=== PATIENT | female | born 1980 | race Caucasian/White ===

== ENCOUNTER 2017-08-17 15:13 | Emergency (ER) | payer MEDICAID ==
[~2017-08-17] VITALS: Ht 152.4 cm; Wt 76.6 kg
[~2017-08-17 15:13] MED LIST: ALPR0.25 PO; DESV50TA PO; ESTR0.6246 PO; ESTR1TAB15 PO; OMEP20CA9 PO
[2017-08-17 16:11] LABS: BASOPHILS # (AUTO) 0.05 x10^3/uL (0-0.1); BASOPHILS % (AUTO) 1 % (0-1); EOSINOPHILS # (AUTO) 0.16 x10^3/uL (0-0.4); EOSINOPHILS % (AUTO) 2 % (1-7); LYMPHOCYTES # (AUTO) 3.24 x10^3/uL (1-3.4); LYMPHOCYTES % (AUTO) 34 % (22-44); MD NO; MEAN CORPUSCULAR HEMOGLOBIN 30.6 pg (27.0-34.8); MEAN CORPUSCULAR HGB CONC 33.9 g/dL (32.4-35.8); MEAN CORPUSCULAR VOLUME 90.4 fL (80-100); MEAN PLATELET VOLUME 8.1 fL (7.4-10.4); MONOCYTES # (AUTO) 0.56 x10^3/uL (0.2-0.8); MONOCYTES % (AUTO) 6 % (2-9); NEUTROPHILS # (AUTO) 5.66 x10^3/uL (1.8-6.8); NEUTROPHILS % (AUTO) 59 % (42-75); PLATELET COUNT 382 x10^3/uL (130-400); RED BLOOD COUNT 4.38 x10^6/uL (3.82-5.3); RED CELL DISTRIBUTION WIDTH 12.5 % (9.6-15.2)
[2017-08-17] MEDS ORDERED: ESCI20TA PO (16:19)
[2017-08-17 16:23] LABS: ALBUMIN 3.8 g/dL (3.4-5.0); ANION GAP 7 mmol/L (5-15); CALCIUM 8.6 mg/dL (8.5-10.1); CHLORIDE 109 mmol/L (98-107)
[2017-08-17] MEDS ORDERED: FAMOTIDINE 20 MG TABLET ONE (16:27)
[2017-08-17] MEDS ORDERED: MAALOX/HYOSCYAMINE/LIDOCAINE 45 ML BTL ONE (16:27)
[2017-08-17 16:28] LABS: ALANINE AMINOTRANSFERASE 39 U/L (12-78); ALKALINE PHOSPHATASE 94 U/L (45-117); BILIRUBIN,TOTAL 0.2 mg/dL (0.2-1.0); CREATININE 0.65 mg/dL (0.55-1.02); TOTAL PROTEIN 7.8 g/dL (6.4-8.2)
[2017-08-17] MEDS ORDERED: FAMOTIDINE 20 MG TABLET PO ONE (16:30)
[2017-08-17] MEDS ORDERED: MAALOX/HYOSCYAMINE/LIDOCAINE 45 ML BTL PO ONE (16:30)
[2017-08-17 16:32] LABS: CULTURE INDICATED? YES; MICROSCOPIC INDICATED
[2017-08-17 17:55] VITALS: BP 110/74
== END 2017-08-17 17:57 | disposition home or self-care (01) ==
LOC: ED 16:46
DX: K29.00 Acute gastritis without bleeding (principal); Z90.710 Acquired absence of both cervix and uterus; Z90.721 Acquired absence of ovaries, unilateral
CPT/HCPCS: 36415; 74021; 80053; 81001; 83690; 84703; 85025; 87086; 99285

== ENCOUNTER 2018-01-11 11:31 | Emergency (ER) | payer MEDICAID ==
[~2018-01-11 11:31] MED LIST changes: +ESCI20TA PO
[2018-01-11 11:57] VITALS: BP 121/76
== END 2018-01-11 13:25 | disposition home or self-care (01) ==
LOC: ED 13:14
DX: M25.562 Pain in left knee (principal)
CPT/HCPCS: 99284

== ENCOUNTER → 2020-02-06 | Outpatient (CLI) | payer MEDICAID | END | disposition home or self-care (01) | LOC: CFH 13:59 | PROVIDERS: ATTEND Family Medicine | DX: K57.32 Diverticulitis of large intestine without perforation or abscess without bleeding (principal); K57.30 Diverticulosis of large intestine without perforation or abscess without bleeding | CPT/HCPCS: 74176 ==